=== PATIENT | male | born 1990 | race Caucasian/White ===

== ENCOUNTER 2024-08-17 10:28 | Emergency (ER) | payer MEDICAID ==
[2024-08-17] MEDS ORDERED: ONDANSETRON ODT 4 MG TAB PO ONE (10:30)
[2024-08-17] MEDS ORDERED: ACETAMINOPHEN 325 MG TAB PO ONE (10:30)
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
--- NOTE | 2024-08-17 11:09 | DVH ---
CT HEAD WITHOUT CONTRAST INDICATION: FALL HEADSTRIKE EXAM DATE: 08/17/2024 10:37 AM COMPARISON: None RADIATION DOSE: CTDIvol: 63.26 mGy, DLP: 993.3 mGy*cm PROCEDURE: CT scans of the head were obtained from the vertex to the skull base. Sagittal and coronal reconstructions were provided. All CT scans at this medical facility are performed using dose modulation techniques as appropriate t o a performed exam including the following: Automated exposure control was utilized; adjustment of th e MA and/or KV according to patient size; and use of iterative reconstruction technique. 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 There is sulcal and ventricular prominence. The brainshows no rmal morphology and delaney-white matter differentiation, without intracranial hemorrhage, extra-axial f luid collection, mass effect or acute large vessel infarct. The ventricles are normal in size. The ba alexey cisterns are patent. The skull and visible facial bones are intact. The paranasal sinuses, mastoi d air cells and middle ear cavities are well-aerated. The soft tissues of the scalp are unremarkable. IMPRESSION: No acute intracranial abnormality.
== END 2024-08-17 12:51 | disposition home or self-care (01) ==
LOC: ER 10:28 → EDBD 10:28 → ER 12:51
DX: S00.93XA Contusion of unspecified part of head, initial encounter (principal); Z87.820 Personal history of traumatic brain injury; W01.0XXA Fall on same level from slipping, tripping and stumbling without subsequent striking against object, initial encounter; Y93.89 Activity, other specified; Y92.098 Other place in other non-institutional residence as the place of occurrence of the external cause; Y99.8 Other external cause status
CPT/HCPCS: 70450

== ENCOUNTER 2024-12-26 02:54 | Emergency (ER) | payer MEDICAID ==
[~2024-12-26] VITALS: Ht 170.2 cm; Wt 63.0 kg
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
[2024-12-26] MEDS: ACETAMINOPHEN 325 MG TAB PO ONE (04:39)
[2024-12-26 04:43] VITALS: BP 125/83; PULSE 85; RESP 19; TEMP 98; O2SAT 97
== END 2024-12-26 04:45 | disposition home or self-care (01) ==
LOC: ER 02:54 → EDBD 02:54 → ER 04:43
DX: S00.83XA Contusion of other part of head, initial encounter (principal); Y04.0XXA Assault by unarmed brawl or fight, initial encounter; Y93.89 Activity, other specified; Y92.89 Other specified places as the place of occurrence of the external cause; Y99.8 Other external cause status